=== PATIENT | female | born 1970 | race Two or more races ===

== ENCOUNTER → 2024-04-13 | Outpatient (CLI) | payer BC, SELFPAY ==
[2024-04-13 08:27] LABS: Basophils % (Auto) 1 % (0-2.5); Eosinophils # (Auto) 0.2 Thou/mm3 (0.0-0.5); Eosinophils % (Auto) 4 % (0-10); Hematocrit 38.5 % (36.0-46.0); Hemoglobin 13.3 g/dL (12.0-16.0); Immature Granulocytes % (Auto) 1 % (0-0); Immature Granulocytes Auto 0.06 Thou/mm3 (0.00-0.00); Lymphocytes # (Auto) 1.2 Thou/mm3 (1.0-4.8); Lymphocytes % (Auto) 21 % (10-50); Mean Corpuscular HGB Conc 34.5 g/dl (31.0-37.0); Mean Corpuscular Hemoglobin 29.1 pg (25.0-35.0); Mean Corpuscular Volume 84 fL (80-100); Monocytes # (Auto) 0.4 Thou/mm3 (0.0-0.8); Monocytes % (Auto) 7 % (0-12); Neutrophils # (Auto) 3.9 Thou/mm3 (1.8-7.7); Neutrophils % (Auto) 67 % (37-80); Nucleated Red Blood Cell % 0 /100 WBC (0); Platelet Count 207 Thou/mm3 (140-440); RDW Standard Deviation 38.7 fL (36.4-46.3); Red Blood Count 4.57 Miln/mm3 (4.00-5.20); White Blood Count 5.8 Thou/mm3 (3.6-11.0)
[2024-04-13 08:39] LABS: Glucose Estimated Average 97 mg/dL (80-131)
[2024-04-13 08:53] LABS: Alanine Aminotransferase 19 U/L (10-49); Albumin, Serum 4.3 gm/dL (3.5-5.0); Alkaline Phosphatase 71 U/L (46-116); Anion Gap 8 (7-16); Aspartate Amino Transferase 12 U/L (0-34); BUN/Creatinine Ratio 24 Ratio (12-20); Bilirubin,Direct 0.1 mg/dL (0.0-0.3); Bilirubin,Total 0.5 mg/dL (0.3-1.2); Blood Urea Nitrogen 19 mg/dL (9-23); Calcium 9.2 mg/dL (8.3-10.6); Carbon Dioxide 25.9 mMol/L (20.0-31.0); Cardiac Risk Estimate 3.8 RATIO (3.7-5.6); Chloride 108 mMol/L (98-107); Cholesterol 199 mg/dL (132-200); Creatinine (Component) 0.8 mg/dL (0.6-1.3); Glucose 109 mg/dL (74-106); HDL Cholesterol 52 mg/dL (40-60); LDL Cholesterol,Calculated 119 mg/dL (0-130); Osmolality,Calculated 286 (275-295); Sodium 142 mMol/L (136-145); Total Protein 6.7 gm/dL (5.7-8.2); Triglycerides 139 mg/dL (30-150); eGFR > 60 See Note
== END | disposition home or self-care (01) ==
LOC: COPL 07:46
PROVIDERS: PCP Family Medicine; Referring Provider Specialist; Visit Provider Specialist
DX: E78.00 Pure hypercholesterolemia, unspecified (principal); R73.03 Prediabetes; I11.9 Hypertensive heart disease without heart failure
CPT/HCPCS: 36415; 80048; 80061; 80076; 83036; 85025

== ENCOUNTER 2024-11-19 09:07 | Emergency (ER) | payer BC, SELFPAY ==
[2024-11-19 09:08] VITALS: BMI 44.2
--- NOTE | 2024-11-19 09:12 | EKG_ITS ---
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
[2024-11-19 09:17] VITALS: BP 156/88; PULSE 57; RESP 18; TEMP 36.7; O2SAT 97
--- NOTE | 2024-11-19 09:23 | XR_ITS ---
Examination: PA lateral chest 2 views TECHNIQUE: Upright PA lateral chest 2 views Date and time: November 19, 2024, 0924 hours INDICATIONS: Chest pain today. FINDINGS: Normal heart size. Lungs are clear. Osseous structures are intact. IMPRESSION: No active disease
--- NOTE | 2024-11-19 09:24 | PD.EDRME ---
Rapid Medical Screening Exam RME Arrival date/time: 11/19/24 09:07 53-year-old female presents to the emergency department today for complaints of chest pain ongoing since yesterday Chief Complaint: Chest Pain Vital signs: Vital Signs Temperature 98.0 F 11/19/24 09:17 Pulse Rate 57 L 11/19/24 09:17 Respiratory Rate 18 11/19/24 09:17 Blood Pressure 156/88 H 11/19/24 09:17 Pulse Oximetry (%) 97 11/19/24 09:17 Oxygen Delivery Method Room Air 11/19/24 09:17
[2024-11-19 09:59] LABS: Basophils # (Auto) 0.0 Thou/mm3 (0.0-0.2); Basophils % (Auto) 0 % (0-2.5); Eosinophils # (Auto) 0.2 Thou/mm3 (0.0-0.5); Eosinophils % (Auto) 2 % (0-10); Hematocrit 39.3 % (36.0-46.0); Hemoglobin 13.7 g/dL (12.0-16.0); Immature Granulocytes Auto 0.03 Thou/mm3 (0.00-0.00); Lymphocytes # (Auto) 1.2 Thou/mm3 (1.0-4.8); Lymphocytes % (Auto) 13 % (10-50); Mean Corpuscular HGB Conc 34.9 g/dl (31.0-37.0); Mean Corpuscular Hemoglobin 30.0 pg (25.0-35.0); Mean Corpuscular Volume 86 fL (80-100); Monocytes # (Auto) 0.6 Thou/mm3 (0.0-0.8); Monocytes % (Auto) 6 % (0-12); Neutrophils # (Auto) 7.2 Thou/mm3 (1.8-7.7); Neutrophils % (Auto) 78 % (37-80); Nucleated Red Blood Cell # 0.00 Thou/mm3 (0.00-0.00); Nucleated Red Blood Cell % 0 /100 WBC (0); Platelet Count 215 Thou/mm3 (140-440); RDW Standard Deviation 41.9 fL (36.4-46.3); Red Blood Count 4.56 Miln/mm3 (4.00-5.20); White Blood Count 9.2 Thou/mm3 (3.6-11.0)
[2024-11-19 10:18] LABS: Alanine Aminotransferase 19 U/L (10-49); Albumin, Serum 4.3 gm/dL (3.5-5.0); Albumin/Globulin Ratio 1.5 (1.2-2.2); Alkaline Phosphatase 74 U/L (46-116); Anion Gap 8 (7-16); Aspartate Amino Transferase 17 U/L (0-34); BUN/Creatinine Ratio 14 Ratio (12-20); Bilirubin,Total 0.6 mg/dL (0.3-1.2); Blood Urea Nitrogen 13 mg/dL (9-23); Calcium 9.0 mg/dL (8.3-10.6); Calcium (Corrected) 9.0 mg/dL (8.5-10.1); Carbon Dioxide 27.4 mMol/L (20.0-31.0); Chloride 108 mMol/L (98-107); Creatinine (Component) 0.9 mg/dL (0.6-1.3); Estimated Creatinine Clearance 87.6 mL/min (>60); Globulin 2.9 gm/dL (2.3-3.5); Glucose 107 mg/dL (74-106); Osmolality,Calculated 285 (275-295); Potassium 4.8 mMol/L (3.4-5.1); Sodium 143 mMol/L (136-145); Total Protein 7.2 gm/dL (5.7-8.2); Troponin I < 0.020 ng/mL (0.0-0.045); eGFR > 60 See Note
[2024-11-19 10:43] LABS: HCG,Qualitative Serum Positive
[2024-11-19 11:51] VITALS: BP 157/82; PULSE 57; RESP 18; TEMP 36.7; O2SAT 100
--- NOTE | 2024-11-19 11:55 | EDNOTE_ITS ---
ED Chest Pain RME/HPI General Chief Complaint: Chest Pain Stated Complaint: CHEST PAIN, NECK, ARM AND HEARTBURN PAIN Time Seen by Provider: 11/19/24 11:44 Arrival date/time: 11/19/24 09:07 RME / HPI RME / HPI narrative: 53-year-old female presents to the emergency department today for complaints of chest pain ongoing since yesterday, described as dull ache, severity moderate. Patient used to take omeprazole however she is not taking it as supposed to be taking it. She had a history of GERD in the past. Denies any cough denies any other complaints no medications taken prior to arrival. Related Data Home Medications ?Medication ?Instructions ?Recorded ?Confirmed tirzepatide 5 mg/0.5 mL 5 mg subcut QWEEK 12/04/23 0 12/05/23 subcutaneous pen injector (Mounjaro) Previous Rx's ?Medication ?Instructions ?Recorded pantoprazole 40 mg tablet,delayed 40 mg PO QDAY #30 ta bs 11/19/24 release (Protonix) Allergies Allergy/AdvReac Type Severity Reaction Status Date / Time No Known Allergies Allergy Verified 11/19/24 09:11 Review of Systems Review of Systems Narrative Review of Systems: Review of system reviewed and within normal limits except mentioned in HPI ED Exam Narrative Physical exam: VITAL SIGNS: Reviewed. GENERAL APPEARANCE: Alert and interactive, follows commands, no acute distress, HEAD AND FACE: Non-traumatic. ENT: PERRL, pink conjunctivitis, eyelid no trauma, Mucous membrane moist. NECK: Supple, nontender, no nuchal rigidity. CHEST: No tenderness, no crepitus, no paradoxical movement, no retractions. LUNGS: Clear, well ventilated, symmetric, no rales, no wheezing, no ronchi, no stridor, good breath sounds bilaterally. HEART: Regular rate, regular rhythm, no murmur, no gallops. ABDOMEN: Soft, positive bowel sounds, nondistended, no guarding, nontender, no rebound, no masses, RECTAL: Deferred. GENITAL: Deferred. NEUROLOGICAL: Gross motor function intact sensory function intact, Appropriate for age. MUSCULOSKELETAL: low back nontender, full range of motion. EXTREMITIES: Nontender, full range of motion. SKIN: Color pink, dry, no rash, no lacerations, no abrasions, no contusions. LYMPHATICS: Deferred. Course Quality Measures none Orders Category Date Time Status EKG (ED ONLY) *Do not use* NOW Care 11/19/24 09:12 Completed EKG (ED Only) Stat Exams 11/19/24 09:12 Draft XR chest 2V Stat Exams 11/19/24 09:23 Completed CBC Stat Lab 11/19/24 09:42 Completed Comprehensive Metabolic Panel Stat Lab 11/19/24 09:42 Completed HCG,Qualitative Serum Stat Lab 11/19/24 09:42 Completed Troponin I Stat Lab 11/19/24 09:42 Completed Vital Signs Vital signs: Vital Signs Temperature 98.0 F 11/19/24 09:17 Pulse Rate 57 L 11/19/24 09:17 Respiratory Rate 18 11/19/24 09:17 Blood Pressure 156/88 H 11/19/24 09:17 Pulse Oximetry (%) 97 11/19/24 09:17 Oxygen Delivery Method Room Air 11/19/24 09:17 Chest Pain MDM Narrative MDM Narrative:: 53-year-old female presents to the emergency department today for complaints of chest pain ongoing since yesterday, described as dull ache, severity moderate. Patient used to take omeprazole however she is not taking it as supposed to be taking it. She had a history of GERD in the past. Denies any cough denies any other complaints no medications taken prior to arrival. Patient's cardiac workup all came back unremarkable. EKG showed sinus bradycardia, ventricular rate of 57 bpm, no ST segment elevation or depression noted. Troponin is normal also. I personally reviewed and interpreted the x-ray of this patient. There is no acute abnormalities found, no infiltrates no pneumothorax no hemothorax normal chest x-ray. Review of other structures was without significant abnormal findings also. I additionally reviewed the radiologist report and agree with the interpretation. Results discussed with the patient. Patient is probably having chest pain secondary to GERD. Patient data External records reviewed:: None Clinical information provided by:: patient Social determinants that could affect healthcare access:: none Patient has the following chronic illnesses:: GERD How is presenting disease/condition affected by chronic disease/condition?: exacerbated by Evaluation data The following diagnostics were reviewed and interpreted by me:: lab results, radiology exam(s) and EKG tracing(s) Lab and/or radiology exams considered but not ordered:: None Interpretation Summary: See results MDM Medications / Prescriptions Medications or Prescriptions considered but not ordered:: None Medication administrations:: None Consultations Consultation(s) initiated? (list below): No Diagnosis Chest Pain Differential Diagnosis: stable angina and chest pain Most likely diagnosis given after review of the tests above:: Chest pain secondary to GERD Admission Indicated Admission indicated?: not indicated Admission Request Was there a request for admission?: No Disposition Plan Disposition Plan: Discharge Discharge Attestation Discharge Attestation: The patient and all family members were given an opportunity to ask questions and understood the discharge instructions. Discharge instructions specifically effects, indications for sooner follow up or return to the emergency department, and the expected course of current diagnosis. Patient condition: Stable Discharge Plan Plan Patient Disposition: HOME (Self Care) Discharge Disposition comment: Stable Prescriptions/Referrals Prescriptions/Med Rec: New pantoprazole [Protonix] 40 mg tablet,delayed release (DR/EC) 40 mg PO QDAY Qty: 30 0RF No Action Mounjaro 5 mg/0.5 mL pen injector 5 mg SUBCUT QWEEK Patient Comments: INJECT 0.5 ML SUBCUTANEOUSLY EVERY WEEK Referrals: Johnnie Akers MD [Primary Care Provider] - In 1 week Problem List Clinical Impression: Chest pain due to GERD Patient/Caregiver Discharge Instructions Discharge Activity: activity as tolerated Education Materials: ED GERD (Adult) Additional Instructions: Thank you for the opportunity for serving you today. You are stable for discharg ed . You are advised to: Follow-up with your PCP in 1 to 2 days Return to ED for worsening of symptoms Increase oral fluids Take medication as prescribed Print Language: Swazi Stand Alone Forms: Glenna Award Info., Patient Portal Info Letter KHUSHBU/DION Supervising Physician GAVIOTA Supervising Physician: MD Alisa
== END 2024-11-19 12:03 | disposition home or self-care (01) ==
PROVIDERS: Emergency Provider Nurse Practitioner Primary Care; PCP Family Medicine
DX: K21.9 Gastro-esophageal reflux disease without esophagitis (principal); R07.9 Chest pain, unspecified; R00.1 Bradycardia, unspecified
CPT/HCPCS: 36415; 71046; 80053; 84484; 84703; 85025; 93005; 99283

== ENCOUNTER 2024-12-23 13:48 | Outpatient (AMB) | payer BC, SELFPAY ==
--- NOTE | 2024-12-23 14:12 | GYNCLNT_ITS ---
Vital Signs 12/23/24 14:19 Height 1.6 m Height Method Measured Weight 116.12 kg Weight Measurement Method Standing Scale BMI 45.3 BP 119/78 Blood Pressure Source Automatic Cuff Blood Pressure Location Right Upper Arm Position Sitting Respiration 17 Pulse 68 Pulse Source Monitor Temp 98.1 F Temp Source Temporal Artery Scan Pulse Oximetry (%) 97 Oxygen Delivery Method Room Air Allergies/Home Meds Allergies & Medications Allergies No Known Allergies Allergy (Verified 12/23/24 14:13) Intake Visit Data Collection New Patient or Established: Established Patient (seen at [facility] within 3 years) Reason for Visit:: HOSPITAL FOLLOW UP Consent obtained for Telemed Visit: No Seen by Clinical Staff ONLY (RN/MA): No Grain Loader Required: No Do You Feel Safe at Home: Yes Authorities Contacted: N/A PCP or OBGYN visit in last 3 months: Yes Date of Last PCP or OBGYN visit: 11/19/24 Hx Now: No Are you currently on any form of Control: No Last menstrual period: 06/06/23 Pain Present Currently: No Pain Scale Used: Hopper-Fong/Numerical Pain scale:: 0 Smoking Status Smoking Status: Current every day smoker Cessation Counseling Provided: KELSIE was advised that quitting smoking is the single most important factor to protect the health of themselves and their family. Discussed the benefits of quitting smoking with patient. Encouraged patient to quit smoking and provided Cessation assistance materials and resources. Tobacco Use: Cigarette Years smoked: 20 Are you interested in Quitting?: No Stitcher Feeder history Stitcher Feeder History Menstrual regularity: irregular Flow: normal Monthly: Yes How many days does period last: 3 Age at menarche: 12 Menopausal: Yes Currently sexually active: Yes Additional comments: LAST PERIOD 06/2023, BTL 1993 QUALITY COORDINATOR: Past Medical History Past Medical History: No Hx Neurological Disorders, Yes Hx Cardiac Disorders (palpitations), No Hx Cancer, No Hx Blood Disorders, Yes Hx Gastrointestinal Disorders (CONSTIPATION), No Hx Renal Disease, No Hx Diabetes Mellitus Type 1, No Hx Diabetes Mellitus Type 2 and Yes Hx Tubal Ligation Questionnaires Covid-19 Vaccine Questionnaire Has patient been vacinated for Covid-19 Have you been vacinated for Covid-19: Yes PHQ-9 PHQ-2 Over the last 2 weeks, how often have you been bothered by any of the following problems? 1. Little interest or pleasure in doing things: not at all 2. Feeling down, depressed, or hopeless: not at all Total score: 0 PHQ-9 3. Trouble falling or staying asleep, or sleeping too much: Not at all 4. Feeling tired or having little energy: Not at all 5. Poor appetite or overeating: Not at all 6. Feeling bad about yourself - or that you are a failure or have let yourself or your family down: Not at all 7. Trouble concentrating on things, such as reading the newspaper or watching television: Not at all 8. Moving or speaking so slowly that other people could have noticed? - Or the opposite - being so fidgety or restless that you have been moving around a lot more than usual: not at all 9. Thoughts that you would be better off or of hurting yourself in some way: Not at all Total score: 0 If you checked off any problems, how difficult have these problems made it for you to do your work, take care of things at home, or get along with other peop le?: not difficult at all Source: Developed by Drs. George Olson, Elvira Madison, Yovany Thomas and colleagues, with an educational betty from [employer]. Social History Living Situation History Marital Status: Lives With: Family Housing: House Tobacco History Smoking Status: Current every day smoker Alcohol History Alcohol Intake: Current Domestic Abuse History Do You Feel Safe at Home: Yes History of Present Illness HPI Narrative 33-year-old 3 para 3 here for lab results. Patient was seen in the [facility] ER in November for complaints of chest pain and possible heart attack. A test was done for this patient. Patient's last. April 20. Patient also has a history of tubal ligation in 1992. She reports that usually her periods were every month prior to menopausal symptoms. Her last Pap was in 2023. She denies any history of abnormal Paps. She had a colonoscopy that was normal. And patient besides her tubal had cholecystectomy and hernia repair. 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 Patient has not had any QUALITY COORDINATOR complaints. She is also not had any complaints of irregular bleeding since April 2024 Review of Systems Review of Systems Systems Reviewed: All systems reviewed, normal except as documented Exam General Limitations: no limitations General Appearance: alert, in no apparent distress, comfortable, cooperative, healthy appearing, well developed and well groomed Head Head exam: atraumatic, normocephalic and normal inspection Chest Chest inspection: Present normal inspection and symmetric chest wall rise Resp Respiratory exam: Present normal lung sounds bilaterally Card Cardiovascular exam: Present regular rate, normal rhythm and normal heart sounds Abdominal Abdominal exam: Present soft and normal bowel sounds Psych Psychiatric exam: Present normal affect and normal mood Results Objective Laboratory: Qualitative HCG:positive. EKG and all other labs normal Office Procedures OB Clinic LOC & Office Proc's Nursing/Assessment Patient Status: Established Patient OB Clinic Nursing Assessment: Medication Reconciliation, Update PMH in EMR and Vital Signs OB Clinic Coordination of Care: Complex Care and Chronic Disease 1-5, Education Complex Pt/Fam, Consent,records obtained, informed consent, 4+ Authorizations needed, Lab and Imaging orders and Results/Orders obtained Established Patient Charge Established Patient Point Assignment: 125 Established Patient Point Charge: EP Level 4 (120-155) Results Urine HCG Urine HCG Negative Last Edit by Stormy Luong MA on 12/23/24 14:15 Assessment & Plan Diagnosis / Problem List (1) Abnormal laboratory test result: Status: Acute Plan Avoid caffeine products. Schedule appointment with PCP at Dr. Madrid's office for her ER follow-up. Quantitative hCG today. And then patient will follow-up for virtual appointment for results Additional Plan Follow Up: 5 Days (results)
[2024-12-23 14:19] VITALS: BP 119/78; PULSE 68; RESP 17; TEMP 36.7; O2SAT 97; BMI 45.3
== END 2024-12-23 14:54 | disposition home or self-care (01) ==
LOC: HODSOBC 13:48
PROVIDERS: Referring Provider Advanced Practice Midwife; Supervising Provider Advanced Practice Midwife; Visit Provider Advanced Practice Midwife
DX: R89.1 Abnormal level of hormones in specimens from other organs, systems and tissues (principal)
CPT/HCPCS: 99214; G0463

== ENCOUNTER 2025-02-04 23:28 | Emergency (ER) | payer BC, SELFPAY ==
[2025-02-04 23:28] VITALS: BMI 44.2
[2025-02-05 00:11] VITALS: BP 126/83; PULSE 92; RESP 16; TEMP 37.2; O2SAT 96
--- NOTE | 2025-02-05 00:29 | EDRME_ITS ---
Rapid Medical Screening Exam [facility] Arrival date/time: 02/04/25 23:28 54F with no significant PMH presents to ED with 1 day of intractable N/V, and then ab pain and CASEY started. Patient is most concerned about the N/V. Patient denies drug/alcohol use. Chief Complaint: Nausea/Vomiting/Diarrhea Vital signs: Vital Signs Temperature 99.0 F 02/05/25 00:11 Pulse Rate 92 02/05/25 00:11 Respiratory Rate 16 02/05/25 00:11 Blood Pressure 126/83 02/05/25 00:11 Pulse Oximetry (%) 96 02/05/25 00:11 Oxygen Delivery Method Room Air 02/05/25 00:11
--- NOTE | 2025-02-05 00:47 | EDNOTE_ITS ---
ED General RME/HPI General Chief complaint: Nausea/Vomiting/Diarrhea Stated complaint: VOMITING X 0700 Time Seen by Provider: 02/05/25 00:47 Arrival date/time: 02/04/25 23:28 RME / HPI RME / HPI narrative: 02/04/25 23:28 54F with PMHx of appendectomy, cholecystectomy who comes in for an evaluation of intractable nausea and vomiting, 10 episodes of nonbloody vomiting, started at 7:45 AM today after drinking her cold coffee in which she drinks that on a routine basis. Denies anyone around her having the symptoms. She does associate a headache with this that has been worsening and throbbing. He denies any chest pain or shortness of breath or syncope or weakness at this time. Denies any recent travel or changes to dietary habits. She notes that her supplements at this time are vitamin D and vitamin B12. Denies any other supp lements or medication changes. Denies drug use or drinking. 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 Her is not having the symptoms. She reports that her abdominal pain is minimum at this time with it being rated 1 out of 10 at this time. Her last bowel movement was small and had occurred today. She denies taking Mounjaro for 2 years. Related Data Previous Rx's ?Medication ?Instructions ?Recorded pantoprazole 40 mg tablet,delayed 40 mg PO QDAY #30 ta bs 11/19/24 release (Protonix) metoclopramide HCl 5 mg tablet 5 mg PO QDAY PRN nausea and 02/05/25 vomiting 1 week #7 tabs Allergies Allergy/AdvReac Type Severity Reaction Status Date / Time No Known Allergies Allergy Verified 02/04/25 23:30 Review of Systems Review of Systems Narrative Review of Systems: Constitutional: No fever, chills, fatigue, weakness, weight loss HEENT: No eye pain, vision loss, ear pain, hearing loss, dysphagia, Cardiovascular: No chest pain, palpitations, edema, pain with walking Respiratory: No cough, shortness of breath, wheezing GI: + Vomiting and abdominal pain, no constipation, blood in stool, loss of appetite, heartburn Extremities: No presence of pitting edema MSK: No back pain, joint pain, joint swelling Neuro: No dizziness, numbness, weakness, headaches, seizures, tremors Psych: No anxiety, depression ED Exam Narrative Physical exam: General: AAOx3, NAD, morbidly obese HEENT: Dry mucous membranes, conjunctiva clear, EOMI, PERRLA, Cardiovascular: S1, S2, radial pulses +2 bilat, RRR Pulmonary: CTAB bilat no cough, no wheezing GI: No tenderness to light or deep palpitation, no guarding, rigidity, rebound tenderness or distension, abdomen soft Extremities: No presence of trace or pitting edema in lower extremities bilaterally, dorsalis pedis pulses +2 bilaterally Neuro: AAOx3, no focal motor or sensory deficits in the UE or LE bilat Psych: Good judgement, thought and behavior Course Quality Measures none Orders Category Date Time Status EKG (ED ONLY) *Do not use* NOW Care 02/05/25 01:18 Completed Insert IV NOW Care 02/05/25 00:28 Active Miscellaneous Nursing Order NOW Care 02/05/25 03:01 Active EKG (ED Only) Stat Exams 02/05/25 01:17 Draft Alcohol, Blood Medical Stat Lab 02/05/25 01:05 Completed CBC Stat Lab 02/05/25 01:05 Completed CMP [Comprehensive Metabolic Panel] Stat Lab 02/05/25 01:05 Completed Drug Screen,Urine Stat Lab 02/05/25 03:05 Completed HCG Qualitative,Urine Stat Lab 02/05/25 03:05 Completed Lipase Stat Lab 02/05/25 01:05 Completed Urinalysis, C/S if Indicated Stat Lab 02/05/25 03:05 Completed Metoclopramide Inj [Reglan Inj] Med 02/05/25 01:17 Discontinued 10 mg IVP X1 ONE Ondansetron Inj [Zofran Inj] Med 02/05/25 00:28 Discontinued 4 mg IVP X1 ONE Pantoprazole Inj [Protonix Inj] Med 02/05/25 00:28 Discontinued 40 mg IVP X1 ONE Sodium Chloride 0.9% 1000 ml [Ns] 1,000 ml Med 02/05/25 00:28 Discontinued IV 999 mls/hr Vital Signs Vital signs: Vital Signs Temperature 99.0 F 02/05/25 00:11 Pulse Rate 92 02/05/25 00:11 Respiratory Rate 16 02/05/25 00:11 Blood Pressure 126/83 02/05/25 00:11 Pulse Oximetry (%) 96 02/05/25 00:11 Oxygen Delivery Method Room Air 02/05/25 00:11 Discharge Plan Plan Patient Disposition: HOME (Self Care) Patient condition on transfer: Stable Prescriptions/Referrals Prescriptions/Med Rec: New metoclopramide HCl 5 mg tablet 5 mg PO QDAY PRN (Reason: nausea and vomiting) 7 Days Qty: 7 0RF Rx Instructions: Take one tablet by mouth as needed for vomiting Continued pantoprazole [Protonix] 40 mg tablet,delayed release (DR/EC) 40 mg PO QDAY Qty: 30 0RF Discontinued Mounjaro 5 mg/0.5 mL pen injector 5 mg SUBCUT QWEEK Patient Comments: INJECT 0.5 ML SUBCUTANEOUSLY EVERY WEEK Referrals: Johnnie Akers MD [Primary Care Provider, Family Practice] - In 1 week Problem List Clinical Impression: Gastroenteritis Patient/Caregiver Discharge Instructions Additional Instructions: Discharge instructions Follow-up with your PCP within 1 week Take Reglan as needed for vomiting Return to ED if your symptoms worsen or return Print Language: Cameroonian Stand Alone Forms: Glenna Award Info., Patient Portal Info Letter MD Attestation MD Attestation I, Dr. Guzman, have reviewed the history, exam, and assessment of the patient. I have evaluated the patient independently and agree with the plan of care documented by the resident Dr. Storey. All diagnostic studies were reviewed and discussed. I confirm the diagnosis as documented by the resident. I was present during the Medical Decision Making for this patient. The patient?s plan of care was created between myself and the resident and consistent with our discussion of the patient?s case. MDM Narrative [facility] hospital course (for use when minimal MDM required): 0124: Will follow-up with labs including lipase, CMP, CBC. Will give IV Reglan in addition to IV bolus and Zofran. 0302: Will give patient p.o. water trial and allow for patient to go home. Patient's symptoms resolved with Reglan. Patient likely experienced intractable nausea and vomiting from gastroenteritis. Urine Hcg negative. Medication Administration(s) Medication Administration History Discontinued Medications Sodium Chloride (Ns) 1,000 mls @ 999 mls/hr IV .Q1H1M ONE Stop: 02/05/25 01:28 Last Infusion: 02/05/25 03:05 Dose: Infused Documented By: Admin: 02/05/25 01:20 Dose: 999 mls/hr Documented By: CVL Metoclopramide HCl (Metoclopramide Inj 5 Mg/Ml Vial 2 Ml) 10 mg IVP X1 ONE; Protocol Stop: 02/05/25 01:18 Last Admin: 02/05/25 01:24 Dose: 10 mg Documented By: CVL Ondansetron HCl (Ondansetron Inj 2 Mg/Ml Inj 2 Ml) 4 mg IVP X1 ONE; Protocol Stop: 02/05/25 00:29 Last Admin: 02/05/25 01:18 Dose: 4 mg Documented By: CVL Pantoprazole Sodium (Pantoprazole Inj 40 Mg Vial) 40 mg IVP X1 ONE Stop: 02/05/25 00:29 Last Admin: 02/05/25 01:23 Dose: 40 mg Documented By: CVL Diagnosis Diagnoses ruled out and/or further discussions: Gastroenteritis, pancreatitis, PUD
[2025-02-05 01:15] LABS: Basophils # (Auto) 0.0 Thou/mm3 (0.0-0.2); Basophils % (Auto) 0 % (0-2.5); Eosinophils # (Auto) 0.0 Thou/mm3 (0.0-0.5); Eosinophils % (Auto) 0 % (0-10); Hematocrit 39.9 % (36.0-46.0); Hemoglobin 14.0 g/dL (12.0-16.0); Immature Granulocytes Auto 0.03 Thou/mm3 (0.00-0.00); Lymphocytes # (Auto) 0.3 Thou/mm3 (1.0-4.8); Lymphocytes % (Auto) 3 % (10-50); Mean Corpuscular HGB Conc 35.1 g/dl (31.0-37.0); Mean Corpuscular Hemoglobin 29.8 pg (25.0-35.0); Mean Corpuscular Volume 85 fL (80-100); Monocytes # (Auto) 0.5 Thou/mm3 (0.0-0.8); Monocytes % (Auto) 5 % (0-12); Neutrophils # (Auto) 9.2 Thou/mm3 (1.8-7.7); Neutrophils % (Auto) 91 % (37-80); Nucleated Red Blood Cell # 0.00 Thou/mm3 (0.00-0.00); Nucleated Red Blood Cell % 0 /100 WBC (0); Platelet Count 211 Thou/mm3 (140-440); RDW Standard Deviation 40.7 fL (36.4-46.3); Red Blood Count 4.70 Miln/mm3 (4.00-5.20); White Blood Count 10.1 Thou/mm3 (3.6-11.0)
--- NOTE | 2025-02-05 01:17 | EKG_ITS ---
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
[2025-02-05] MEDS: ONDANSETRON INJ 2 MG/ML INJ 2 ML 4 MG IVP (01:18)
[2025-02-05] MEDS: SODIUM CHLORIDE 0.9% 1000 ML 1,000 ML 999 ML IV (01:20)
[2025-02-05] MEDS: METOCLOPRAMIDE INJ 5 MG/ML VIAL 2 ML 10 MG IVP (01:24)
[2025-02-05 01:44] LABS: Alanine Aminotransferase 17 U/L (10-49); Albumin, Serum 4.6 gm/dL (3.5-5.0); Albumin/Globulin Ratio 1.7 (1.2-2.2); Alcohol, Blood Medical < 3.0 mg/dL (0-10.0); Alkaline Phosphatase 75 U/L (46-116); Anion Gap 10 (7-16); Aspartate Amino Transferase 15 U/L (0-34); BUN/Creatinine Ratio 19 Ratio (12-20); Bilirubin,Total 0.8 mg/dL (0.3-1.2); Blood Urea Nitrogen 19 mg/dL (9-23); Calcium 9.2 mg/dL (8.3-10.6); Calcium (Corrected) 9.2 mg/dL (8.5-10.1); Carbon Dioxide 25.0 mMol/L (20.0-31.0); Chloride 108 mMol/L (98-107); Creatinine (Component) 1.0 mg/dL (0.6-1.3); Estimated Creatinine Clearance 78.0 mL/min (>60); Globulin 2.7 gm/dL (2.3-3.5); Glucose 149 mg/dL (74-106); Lipase 27 U/L (12-53); Osmolality,Calculated 290 (275-295); Potassium 3.5 mMol/L (3.4-5.1); Sodium 143 mMol/L (136-145); Total Protein 7.3 gm/dL (5.7-8.2); eGFR > 60 See Note
[2025-02-05 01:53] VITALS: BP 120/65; PULSE 67; RESP 19; TEMP 36.6; O2SAT 96
[2025-02-05 03:07] LABS: Collection Type, Urine Clean Catch
[2025-02-05 03:27] LABS: HCG Qualitative,Urine Negative
[2025-02-05 03:28] LABS: Amorphous Crystals,Urine Present (Absent); Bilirubin,Urine Negative (Negative); Blood,Urine 2+ (Negative); Color,Urine Yellow (Lt Yel-Yel); Culture Indicated,Urine Contaminated; Glucose, Urine Trace (Negative); Ketones,Urine Trace (Negative); Leukocyte Esterase,Urine Positive (Negative); Nitrite,Urine Negative (Negative); PH,Urine 5.5 (5.0-7.0); Protein,Urine 1+ (Neg - Trace); RBC,Urine 27 /hpf (0-3); Specific Gravity,Urine 1.034 (1.001-1.035); Squamous Epithelial Cell,Urine 25 /hpf (0-5); Urobilinogen,Urine 2.0 mg/dL (0.0-1.0); WBC,Urine 31 /hpf (0-5)
[2025-02-05 03:29] LABS: Clarity,Urine Turbid (Clear/Hazy)
[2025-02-05 03:38] LABS: Amphetamine/Methamp Scrn,U Negative (Negative); Barbiturate Screen,Urine Negative (Negative); Benzodiazepines Screen,Urine Negative (Negative); Benzoylecgonine Screen, Ur Negative (Negative); Fentanyl Screen,Urine Negative (Negative); Opiate Screen,Urine Negative (Negative); THC Screen,Urine Negative (Negative)
--- NOTE | 2025-02-05 03:39 | PC.NURSE ---
WATER PROVIDED, NO VOMITING NOTED .
[2025-02-05 03:51] VITALS: RESP 12
== END 2025-02-05 03:53 | disposition home or self-care (01) ==
PROVIDERS: Physician Assistant; Emergency Provider Emergency Medicine; PCP Family Medicine
DX: K52.9 Noninfective gastroenteritis and colitis, unspecified (principal); K27.9 Peptic ulcer, site unspecified, unspecified as acute or chronic, without hemorrhage or perforation; K85.90 Acute pancreatitis without necrosis or infection, unspecified; E66.01 Morbid (severe) obesity due to excess calories; Z68.41 Body mass index [BMI] 40.0-44.9, adult; Z90.49 Acquired absence of other specified parts of digestive tract; Z90.89 Acquired absence of other organs
CPT/HCPCS: 36415; 80053; 80307; 80320; 81001; 81025; 83690; 85025; 93005; 96361; 96374; 96375; 99283; J2405; J2470; J2765; J7030; G0480